=== PATIENT | male | born 1990 | race Caucasian/White ===

== ENCOUNTER 2020-05-26 14:05 | Emergency (ER) | payer SELFPAY ==
[2020-05-26] MEDS ORDERED: XYLOCAINE 1% HCL 20 ML MDV IJ ONE (14:06)
--- NOTE | 2020-05-26 14:10 | ERPHSYRPT ---
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 The penile dysuria was present for approximately 3 to 4 weeks. Initially was intermittent. But in the last 2 weeks it became more constant with associated penile discharge that was white. He is sexually active but has had 1 partner in the last 3 months. The the partner has no symptoms. Patient has had urinary tract infections in the distant past but has been 10 to 12 years. Patient has a history of hypertension and is supposed to be on lisinopril. However, he took himself off of it. His prescribing doctor told him to put himself back on his blood pressure medication. Patient has been noncompliant in doing so. Timing/Duration: week(s) (3-4), worse Activites at Onset: none Quality: burning Onset Location: urethral Pain Radiation: none Severity of Pain-Max: mild Severity of Pain-Current: mild Prior abdominal problems: none Sexual intercourse history: single partner Modifying Factors: Improves With: urinating Associated Symptoms: dysuria, urinary frequency, other (I will discharge) Allergies/Adverse Reactions: latex Allergy (Mild, Verified 05/26/20 14:14) Rash Hx Tetanus, Diphtheria Vaccination/Date Given: No Hx Influenza Vaccination/Date Given: Yes (2012) Hx Pneumococcal Vaccination/Date Given: No Travel Risk - International Travel Have you traveled outside of the country in past 3 weeks: No - Coronavirus Screening Are you exhibiting any of the following symptoms?: No Close contact with a COVID-19 positive Pt in past 14-21 Days: No - Review of Systems Constitutional: No Symptoms Eyes: No Symptoms Ears, Nose, & Throat: No Symptoms Respiratory: No Symptoms Cardiac: No Symptoms Abdominal/Gastrointestinal: No Symptoms Genitourinary Symptoms: Dysuria, Frequency, Penile Discharge Musculoskeletal: No Symptoms Skin: No Symptoms Neurological: No Symptoms Psychological: No Symptoms Endocrine: No Symptoms Hematologic/Lymphatic: No Symptoms Immunological/Allergic: No Symptoms All Other Systems: Reviewed and Negative - Past Medical History Pertinent Past Medical History: Yes Neurological History: No Pertinent History ENT History: No Pertinent History Cardiac History: Hypertension Respiratory History: No Pertinent History Endocrine Medical History: No Pertinent History Musculoskeletal History: No Pertinent History GI Medical History: No Pertinent History History: No Pertinent History Psycho-Social History: No Pertinent History Male Reproductive Disorders: No Pertinent History Other Medical History: ONLY ONE KIDNEY - Past Surgical History Past Surgical History: Yes Neuro Surgical History: No Pertinent History Cardiac: No Pertinent History Respiratory: No Pertinent History Gastrointestinal: No Pertinent History Genitourinary: Kidney Surgery Musculoskeletal: No Pertinent History - Social History Smoking Status: Never smoker Exposure to second hand smoke: No Drug Use: none Patient Lives Alone: No - Nursing Vital Signs Nursing Vital Signs: Initial Vital Signs Temperature 98.3 F 05/26/20 14:16 Pulse Rate 102 H 05/26/20 14:16 Respiratory Rate 18 05/26/20 14:16 Blood Pressure 172/119 05/26/20 14:16 O2 Sat by Pulse Oximetry 96 05/26/20 14:16 Pain Scale Pain Intensity 5 - Physical Exam General Appearance: no apparent distress, alert, anxiety Eye Exam: PERRL/EOMI, eyes nml inspection Ears, Nose, Throat Exam: normal ENT inspection, moist mucous membranes Neck Exam: normal inspection, non-tender, supple, full range of motion Respiratory Exam: airway intact, No chest tenderness, No respiratory distress Gastrointestinal/Abdomen Exam: No tenderness Male Genitalia Exam: normal genitalia, No penile discharge Back Exam: normal inspection, normal range of motion, CVA tenderness Extremity Exam: normal inspection, normal range of motion, pelvis stable Neurologic Exam: alert, oriented x 3, cooperative, fsr II-XII nml as tested, normal mood/affect, nml cerebellar function, nml station & gait, sensation nml Skin Exam: normal color, warm, dry Lymphatic Exam: No adenopathy SpO2 Interpretation: normal O2 Delivery: Room Air - Course Nursing assessment & vital signs reviewed: Yes Ordered Tests: Active Orders 24 hr Category Date Time Status CULTURE,URINE Stat Lab 05/26/20 14:34 Received UA W/RFX UR CULTURE Stat Lab 05/26/20 14:34 Completed Medication Summary Discontinued Medications Generic Name Dose Route Start Last Admin Trade Name Freq PRN Reason Stop Dose Admin Azithromycin 1,000 mg 05/26/20 16:20 Zithromax 250 Mg Tablet PO 05/26/20 16:21 STAT ONE Ceftriaxone Sodium 1,000 mg 05/26/20 16:20 Rocephin 1000 Mg Inj IM 05/26/20 16:21 STAT ONE Phenazopyridine HCl 200 mg 05/26/20 16:21 Pyridium 200 Mg PO 05/26/20 16:22 STAT ONE Lab/Rad Data: Laboratory Results 05/26/20 05/26/20 Range/Units Unknown 14:34 Urine Color ELYSIA (YELLOW) Urine Appearance SLIGHTLY CLOUDY (CLEAR) Urine pH 6.0 (5-6) Ur Specific [place] 1.033 (1.005-1.025) Urine Protein 100 (Negative) Urine Ketones MODERATE (NEGATIVE) Urine Blood NEGATIVE (0-5) Hari/ul Urine Nitrite NEGATIVE (NEGATIVE) Urine Bilirubin NEGATIVE (NEGATIVE) Urine Urobilinogen 2 (0-1) mg/dL Ur Leukocyte Esterase MODERATE (NEGATIVE) Urine WBC (Auto) 51-100 (0-5) /HPF Urine RBC (Auto) 6-10 (0-2) /HPF U Epithel Cells (Auto) RARE (FEW) /HPF Urine Bacteria (Auto) FEW (NEGATIVE) /HPF Urine Mucus (Auto) MANY (NEGATIVE) /HPF Urine Culture Reflexed YES (NO) Urine Glucose NEGATIVE (NEGATIVE) mg/dL Chlamydia DNA Probe DETECTED (NEGATIVE) N.gonorrhoeae DNA Probe NOT DETECTED (NEGATIVE) - Progress Progress: unchanged Air Movement: good Blood Culture(s) Obtained: No Antibiotics given: Yes Counseled pt/family regarding: lab results, diagnosis, need for follow-up - Departure Departure Disposition: Home Clinical Impression: Urinary tract infection, Chlamydial infection Condition: Stable Critical Care Time: No Referrals: DOCTOR,NO FAMILY [Primary Care Provider] - Additional Instructions: Drink plenty of fluids. Use Tylenol for pain. Abstain from sex for 7 days. Notify any sexual partners of your diagnosis and have them evaluated next week. Take your medication as prescribed. Prescriptions: Ciprofloxacin [Cipro 500 MG] 500 mg PO BID #14 tablet Phenazopyridine HCl 200 mg [Pyridium 200 mg] 200 mg PO TID #6 tablet
[2020-05-26 15:03] LABS: Appearance SLIGHTLY CLOUDY (CLEAR); Bacteria FEW /HPF (NEGATIVE); Bilirubin NEGATIVE (NEGATIVE); Blood NEGATIVE Ery/ul (0-5); Epithelial Cells RARE /HPF (FEW); Glucose NEGATIVE (NEGATIVE); Ketones MODERATE (NEGATIVE); Leukocyte Esterase MODERATE (NEGATIVE); Mucus MANY /HPF (NEGATIVE); Nitrite NEGATIVE (NEGATIVE); Protein,Urine Dip 100 (Negative); Specific Gravity 1.033 (1.005-1.025); Urobilinogen 2 mg/dL (0-1); WBC 51-100 /HPF (0-5)
[2020-05-26 15:35] VITALS: BP 174/116; PULSE 85; O2SAT 98
[2020-05-26 16:15] LABS: GC DNA Probe NOT DETECTED (NEGATIVE)
[2020-05-26 16:18] LABS: CHLAMYDIA DNA DETECTED (NEGATIVE)
[2020-05-26] MEDS ORDERED: Rocephin 1000 MG INJ IM ONE (16:20)
[2020-05-26] MEDS ORDERED: Zithromax 250 MG TABLET PO ONE (16:20)
[2020-05-26] MEDS ORDERED: PYRIDIUM 200 MG PO ONE (16:21)
[2020-05-26] MEDS ORDERED: Zithromax 250 MG TABLET ONE (16:32)
[2020-05-26] MEDS ORDERED: Rocephin 1000 MG INJ ONE (16:33)
[2020-05-26] MEDS ORDERED: PYRIDIUM 200 MG ONE (16:33)
== END 2020-05-26 16:55 | disposition home or self-care (01) ==
LOC: ED 14:05
DX: N39.0 Urinary tract infection, site not specified (principal); A74.89 Other chlamydial diseases; I10 Essential (primary) hypertension
CPT/HCPCS: 81001; 87086; 87491; 87591; 96372; 99284; J0696; A9270-GY

== ENCOUNTER 2021-04-19 10:03 | Emergency (ER) | payer MEDICAID, OTHER ==
--- NOTE | 2021-04-19 10:08 | ERPHSYRPT ---
- History of Present Illness Time Seen by Provider: 04/19/21 10:07 Source: patient Exam Limitations: no limitations Physician History: This is a 31-year-old white male who "rolled" his ankle 2 days ago. He continued to work with an Lb wrap in place. However, today there is more bruising and swelling present in the lateral aspect of his right ankle. He is here for evaluation. He did feel a popping sensation when the ankle rolled. He has been able to put weight on it while ambulating but it is painful to do so. Method of Injury: twisted Occurred: days ago (2) Severity of Pain-Max: moderate Severity of Pain-Current: mild (Mild to moderate) Lower Extremities Pain: ankle: right Modifying Factors: Improves With: movement Associated Symptoms: other (Hurts to bear weight but has been doing so.) Allergies/Adverse Reactions: latex Allergy (Mild, Verified 04/19/21 10:10) Rash Home Medications: No Reportable Medications [No Reported Medications] 04/19/21 [History] Hx Tetanus, Diphtheria Vaccination/Date Given: No Hx Influenza Vaccination/Date Given: Yes (2012) Hx Pneumococcal Vaccination/Date Given: No - Review of Systems Constitutional: No Symptoms Eyes: No Symptoms Ears, Nose, & Throat: No Symptoms Respiratory: No Symptoms Cardiac: No Symptoms Abdominal/Gastrointestinal: No Symptoms Genitourinary Symptoms: No Symptoms Musculoskeletal: Injury (Right ankle) Skin: No Symptoms Neurological: No Symptoms Psychological: No Symptoms Endocrine: No Symptoms Hematologic/Lymphatic: No Symptoms Immunological/Allergic: No Symptoms All Other Systems: Reviewed and Negative - Past Medical History Pertinent Past Medical History: Yes Neurological History: No Pertinent History ENT History: No Pertinent History Cardiac History: Hypertension Respiratory History: No Pertinent History Endocrine Medical History: No Pertinent History Musculoskeletal History: No Pertinent History GI Medical History: No Pertinent History History: No Pertinent History Psycho-Social History: No Pertinent History Male Reproductive Disorders: No Pertinent History Other Medical History: ONLY ONE KIDNEY - Past Surgical History Past Surgical History: Yes Neuro Surgical History: No Pertinent History Cardiac: No Pertinent History Respiratory: No Pertinent History Gastrointestinal: No Pertinent History Genitourinary: Kidney Surgery Musculoskeletal: No Pertinent History Male Surgical History: No Pertinent History Other Surgical History: jemal ear surgery reconstruction - Social History Smoking Status: Never smoker Exposure to second hand smoke: No Drug Use: none Patient Lives Alone: No - Nursing Vital Signs Nursing Vital Signs: Initial Vital Signs Temperature 98.2 F 04/19/21 10:11 Pulse Rate 102 H 04/19/21 10:11 Respiratory Rate 18 04/19/21 10:11 Blood Pressure 165/111 04/19/21 10:11 O2 Sat by Pulse Oximetry 98 04/19/21 10:11 Pain Scale Pain Intensity 5 - Physical Exam General Appearance: no apparent distress, alert, anxiety Eyes, Ears, Nose, Throat Exam: normal ENT inspection, moist mucous membranes Neck Exam: normal inspection, non-tender, supple, full range of motion Cardiovascular/Respiratory Exam: chest non-tender, no respiratory distress Gastrointestinal/Abdominal Exam: non-tender Back Exam: normal inspection, normal range of motion, vertebral tenderness, No CVA tenderness Hips Exam: bilateral: non-tender, normal inspection, normal range of motion, no evidence of injury Legs Exam: bilateral leg: non-tender, normal inspection, normal range of motion, no evidence of injury Knees Exam: bilateral knee: non-tender, normal inspection, normal range of motion, no evidence of injury Ankle Exam: right ankle: bone tenderness, ecchymosis, soft tissue tenderness, swelling, left ankle: non-tender, normal inspection, normal range of motion, no evidence of injury Foot Exam: bilateral foot: non-tender, normal inspection, normal range of motion, no evidence of injury Neuro/Tendon Exam: normal sensation, normal motor functions, normal tendon functions, responds to pain Mental Status Exam: alert, oriented x 3, cooperative Skin Exam: ecchymosis (Lateral aspect right ankle, lateral malleoli region) SpO2 Interpretation: normal O2 Delivery: Room Air - Course Nursing assessment & vital signs reviewed: Yes Ordered Tests: Active Orders 24 hr Category Date Time Status ANKLE (3 VIEWS) Stat Exams 04/19/21 Completed - Progress Progress: unchanged, pain not gone completely Progress Note: 04/19/21 10:41 X-ray right ankle shows no acute fracture or dislocation. Counseled pt/family regarding: lab results, diagnosis, need for follow-up, rad results - Departure Departure Disposition: Home Clinical Impression: Right ankle sprain Condition: Stable Critical Care Time: No Referrals: DOCTOR,NO FAMILY [Primary Care Provider] - Additional Instructions: Ice pack to right ankle area of swelling three times a day for the next 3 days. Tylenol and ibuprofen for pain control. Elevate the right lower extremity above the level of heart. Try to minimize your ambulation. May wear Lb wrap. Follow- up with your primary care physician or [facility] orthopedic clinic for persistent swelling bruising and pain.
[2021-04-19 10:16] VITALS: BP 165/111; PULSE 102; O2SAT 98
--- NOTE | 2021-04-19 10:39 | XRAY ---
Indication: Pain and swelling following injury. Comparison: None 3 view right ankle demonstrates mild lateral soft tissue swelling. No other bony, articular, or soft tissue abnormalities.
== END 2021-04-19 10:57 | disposition home or self-care (01) ==
LOC: ED 10:03
DX: S93.401A Sprain of unspecified ligament of right ankle, initial encounter (principal); X50.1XXA Overexertion from prolonged static or awkward postures, initial encounter; Y93.89 Activity, other specified; Y92.89 Other specified places as the place of occurrence of the external cause
CPT/HCPCS: 73610; 99283